=== PATIENT | male | born 1955 | race Hispanic/Latino ===

== ENCOUNTER → 2019-12-14 | Outpatient (CLI) | payer MEDICARE | END | disposition home or self-care (01) | LOC: SHCH 12:43 | PROVIDERS: ATTEND Internal Medicine Cardiovascular Disease | DX: I42.9 Cardiomyopathy, unspecified (principal) | CPT/HCPCS: 93306; 93356 ==

== ENCOUNTER 2020-01-13 05:12 | Day surgery (SDC) | payer MEDICARE ==
[2020-01-12 10:44] LABS: BASOPHILS % (AUTO) 0.9 % (0.0-5.0); EOSINOPHILS % (AUTO) 2.5 % (0.0-8.0); HEMATOCRIT 38.6 % (42-54); LYMPHOCYTES % (AUTO) 33.1 % (21.0-51.0); MEAN CORPUSCULAR HEMOGLOBIN 30.5 pg (27.0-33.0); MEAN CORPUSCULAR HGB CONC 32.9 g/dL (32.0-36.0); MEAN CORPUSCULAR VOLUME 92.6 fL (79-99); MONOCYTES % (AUTO) 9.7 % (3.0-13.0); NEUTROPHILS % (AUTO) 53.5 % (40.0-77.0); PLATELET COUNT (AUTO) 172 K/uL (130-400); RED BLOOD CELL COUNT(AUTO) 4.17 MIL/uL (4.50-6.20); RED CELL DISTRIBUTION WIDTH 13.5 % (11.0-15.5); WHITE BLOOD COUNT (AUTO) 6.8 K/uL (4.8-10.8)
[2020-01-12 10:54] LABS: CREATININE 1.1 mg/dL (0.5-1.5); POTASSIUM 3.7 mmol/L (3.5-5.1)
[2020-01-12 10:57] LABS: INR 0.98 (0.85-1.15); PARTIAL THROMBOPLASTIN TIME 27.9 SEC (26.3-35.5); PROTHROMBIN TIME 10.6 SEC (9.6-11.6)
[2020-01-13] VITALS (8 sets, daily range): BP systolic 17–131; BP diastolic 66–80
[~2020-01-13] VITALS: Ht 182.9 cm; Wt 93.6 kg
[~2020-01-13 05:12] MED LIST: ACYC800T PO; CARV12.511 PO; CEFAZOLIN SODIUM 1 GM VIAL IVP SCH; DEXA4TAB PO; FURO40TA5 PO; HYDR-4060 PO; LOSA25TA41 PO; METF-444 PO; PANT40TA54 PO; PRAV10TA39 PO; RIVA20TA PO; TAMS-1 PO; TRAM50TA4 PO
[2020-01-13] MEDS ORDERED: SODIUM CHLORIDE 0.9% 1000ML 1,000 ML IV ONE (06:33)
[2020-01-13] MEDS ORDERED: MEPERIDINE-PF 25 MG/ML SYG ONE ×3 (07:24→08:28)
[2020-01-13] MEDS ORDERED: LIDOCAINE HCL 1% MDV 50ML VIAL ONE (07:24)
[2020-01-13] MEDS ORDERED: CEFAZOLIN SODIUM 1 GM VIAL ONE (07:24)
[2020-01-13] MEDS ORDERED: MIDAZOLAM HCL 1 MG/ML 2ML VIAL ONE ×3 (07:24→08:28)
[2020-01-13] MEDS ORDERED: BUPIVACAINE/PF 0.25% 30ML VIAL IJ ONE (07:24)
[2020-01-13] MEDS ORDERED: ACETAMINOPHEN-CODEINE 300/30MG TAB PO PRN (09:15)
--- NOTE | 2020-01-13 10:40 | NUR ---
PT AND DAUGHTER CALLED AND GIVEN DISCHARGE INSTRUCTIONS-VERBALIZE UNDERSTANDING. NO HEMATOMA OR BLEEDING TO LEFT CHEST AICD INCISION.STABLE
--- NOTE | 2020-01-13 12:30 | NUR ---
PT DISCHARGED HOME- PRINTED AND VERBAL DISCHARGE INSTRUCTION GIVEN TO PT. DRESSING CHANGE DEMO GIVEN TO PT. LEFT CHEST DRESSING CLEAN DRY AND INTACT WITH NO HEMATOMA OR BLEEDING. TO CAR VIA WHEELCHAIR. DRIVES HIM HOME
== END 2020-01-13 12:30 | disposition home or self-care (01) ==
LOC: DAH 05:12
PROVIDERS: ATTEND Internal Medicine Cardiovascular Disease
DX: I50.22 Chronic systolic (congestive) heart failure (principal); I42.0 Dilated cardiomyopathy; I48.21 Permanent atrial fibrillation; Z95.810 Presence of automatic (implantable) cardiac defibrillator; Z79.01 Long term (current) use of anticoagulants; Z79.899 Other long term (current) drug therapy
CPT/HCPCS: 33264; 36415; 80048; 85025; 85610; 85730; A4215; A4216; A4221; A4222; A4223 ×3; A4606; A4663; C1882; J0690; J2175 ×3; J2250 ×3; J3490 ×2; J7030; 99156; 99157

== ENCOUNTER → 2024-03-03 | Outpatient (CLI) | payer MEDICARE ==
[~2024-03-03] MED LIST changes: +ACYC-138 PO; -ACYC800T PO; -CEFAZOLIN SODIUM 1 GM VIAL IVP SCH
== END | disposition home or self-care (01) ==
LOC: SHCH 08:44
PROVIDERS: ATTEND Internal Medicine Cardiovascular Disease
DX: I08.3 Combined rheumatic disorders of mitral, aortic and tricuspid valves (principal); I42.9 Cardiomyopathy, unspecified; I48.91 Unspecified atrial fibrillation
CPT/HCPCS: 93306